=== PATIENT | male | born 2000 | race Caucasian/White ===

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

== ENCOUNTER 2022-08-09 23:54 | Emergency (ER) | payer OTHER ==
[~2022-08-09] VITALS: Ht 182.8 cm; Wt 81.2 kg
[2022-08-10] MEDS ORDERED: ONDANSETRON4 MG SL (01:01)
== END 2022-08-10 01:13 | disposition home or self-care (01) ==
LOC: ED 23:54
DX: R10.12 Left upper quadrant pain (principal); R11.2 Nausea with vomiting, unspecified; Z96.22 Myringotomy tube(s) status

== ENCOUNTER 2023-03-05 16:07 | Emergency (ER) | payer OTHER ==
[~2023-03-05] VITALS: Ht 182.8 cm; Wt 81.2 kg
[~2023-03-05 16:07] MED LIST changes: +ONDANSETRON4 MG SL
== END 2023-03-05 18:44 | disposition home or self-care (01) ==
LOC: ED 16:07
DX: S62.304A Unspecified fracture of fourth metacarpal bone, right hand, initial encounter for closed fracture (principal); S62.306A Unspecified fracture of fifth metacarpal bone, right hand, initial encounter for closed fracture; Z98.890 Other specified postprocedural states; Z87.891 Personal history of nicotine dependence; F90.9 Attention-deficit hyperactivity disorder, unspecified type; W22.01XA Walked into wall, initial encounter; Y93.89 Activity, other specified; Y92.89 Other specified places as the place of occurrence of the external cause; Y99.8 Other external cause status

== ENCOUNTER → 2023-03-09 | Day surgery (SDC) | payer OTHER ==
[~2023-03-09] VITALS: Ht 182.8 cm; Wt 81.2 kg
[~2023-03-09] MED LIST changes: +HYDROCODONE-AC1 EAC1 PO
[2023-03-09 09:22] VITALS: BP 123/60
[2023-03-09 11:34] VITALS: BP 109/55
[2023-03-09 11:49] VITALS: BP 102/54
[2023-03-09 12:04] VITALS: BP 100/54
[2023-03-09 12:19] VITALS: BP 88/41
[2023-03-09 12:34] VITALS: BP 88/46
== END | disposition home or self-care (01) ==
LOC: SDC 03-07 13:15
PROVIDERS: ATTEND Orthopaedic Surgery
DX: S62.324A Displaced fracture of shaft of fourth metacarpal bone, right hand, initial encounter for closed fracture (principal); S62.356A Nondisplaced fracture of shaft of fifth metacarpal bone, right hand, initial encounter for closed fracture; F90.9 Attention-deficit hyperactivity disorder, unspecified type; F17.210 Nicotine dependence, cigarettes, uncomplicated; W22.01XA Walked into wall, initial encounter; Y93.89 Activity, other specified; Y92.89 Other specified places as the place of occurrence of the external cause; Y99.8 Other external cause status

== ENCOUNTER → 2023-03-24 | Outpatient (CLI) | payer OTHER | END | disposition home or self-care (01) | LOC: ORTHO 03:17 | PROVIDERS: ATTEND Orthopaedic Surgery | DX: S62.324D Displaced fracture of shaft of fourth metacarpal bone, right hand, subsequent encounter for fracture with routine healing (principal); S62.356D Nondisplaced fracture of shaft of fifth metacarpal bone, right hand, subsequent encounter for fracture with routine healing; X58.XXXD Exposure to other specified factors, subsequent encounter ==

== ENCOUNTER → 2023-04-07 | Outpatient (CLI) | payer OTHER | END | disposition home or self-care (01) | LOC: ORTHO 02:09 | PROVIDERS: ATTEND Orthopaedic Surgery | DX: S62.356D Nondisplaced fracture of shaft of fifth metacarpal bone, right hand, subsequent encounter for fracture with routine healing (principal); S62.324D Displaced fracture of shaft of fourth metacarpal bone, right hand, subsequent encounter for fracture with routine healing; X58.XXXD Exposure to other specified factors, subsequent encounter ==

== ENCOUNTER → 2023-04-21 | Outpatient (CLI) | payer OTHER | END | disposition home or self-care (01) | LOC: ORTHO 04-20 11:32 | PROVIDERS: ATTEND Orthopaedic Surgery | DX: S62.356D Nondisplaced fracture of shaft of fifth metacarpal bone, right hand, subsequent encounter for fracture with routine healing (principal); S62.324D Displaced fracture of shaft of fourth metacarpal bone, right hand, subsequent encounter for fracture with routine healing; Z98.890 Other specified postprocedural states; X58.XXXD Exposure to other specified factors, subsequent encounter ==

== ENCOUNTER 2024-04-24 18:29 | Emergency (ER) | payer SELFPAY ==
[~2024-04-24] VITALS: Ht 182.8 cm; Wt 81.2 kg
[2024-04-24] MEDS ORDERED: IBUPROFEN600 MG PO (19:54)
[2024-04-24] MEDS ORDERED: AMOXICILLIN500 M2 PO (19:54)
[2024-04-24] MEDS ORDERED: AMOXICILLIN 500 MG CAP PO ONE (19:55)
[2024-04-24] MEDS ORDERED: IBUPROFEN 800 MG TAB PO ONE (19:55)
== END 2024-04-24 20:02 | disposition home or self-care (01) ==
LOC: ED 18:29
DX: K02.9 Dental caries, unspecified (principal); Z96.22 Myringotomy tube(s) status

== ENCOUNTER 2025-07-10 10:23 | Emergency (ER) | payer OTHER ==
[~2025-07-10] VITALS: Ht 185.4 cm; Wt 81.2 kg
[~2025-07-10 10:23] MED LIST changes: +AMOXICILLIN500 M2 PO; +IBUPROFEN600 MG PO
[2025-07-10] MEDS ORDERED: MEDROL DOSEPAK4 MG PO (11:04)
== END 2025-07-10 11:15 | disposition home or self-care (01) ==
LOC: ED 10:23
DX: T63.441A Toxic effect of venom of bees, accidental (unintentional), initial encounter (principal); R60.0 Localized edema; Z79.899 Other long term (current) drug therapy; Z96.22 Myringotomy tube(s) status; Y92.89 Other specified places as the place of occurrence of the external cause